=== PATIENT | female | born 1950 | race Caucasian/White ===

== ENCOUNTER → 2018-11-10 09:49 | Day surgery (SDC) | payer MEDICARE, OTHER ==
[~2018-11-10 09:49] MED LIST: Acetaminophen TAB* 325 MG PO PRN; Betamethasone INJ* 6 MG/ML 5 ML VIAL (30 MG) ONE; Buffered Lidocaine 1% SYRIN* 1 ML/SYRINGE INTRADERM ONE; Bupivacaine 0.25% SDV PF* 10 ML VIAL INJ ONE; Dexamethasone IV* 4 MG/ML 1 ML (4 MG) ONE; Dexamethasone IV* 4 MG/ML 5 ML VIAL (20 MG) ONE; Diltiazem CD CAP* 120 MG PO SCH; Famotidine IV* 10 MG/ML 2 ML (20 mg) IV ONE; Famotidine IV* 10 MG/ML 2 ML (20 mg) ONE; Ibuprofen TAB* 600 MG PO PRN; Lactated Ringers 1000 ML Bag* 1,000 ML IV SCH; Lidocaine 1% INJ* 10 MG/ML 30 ML SDV ONE; Midazolam* 1 MG/ML 2 ML VIAL (2 MG) ONE; Naloxone* 0.4 MG/ML 1 ML VIAL IV PRN; Ondansetron INJ* 2 MG/ML VIAL IV PRN; Propofol* 10 MG/ML 20 ML BTL ONE; ceFAZolin 2 GM PREMIX in ORs 2 GM/50 ML BAG IVPB ONE; fentaNYL* 50 MCG/ML 2 ML VIAL (100 MCG VIAL) IV PRN; fentaNYL* 50 MCG/ML 2 ML VIAL (100 MCG VIAL) ONE; oxyCODONE/Acetamin 5/325 MG* TAB PO PRN
[2018-11-10] MEDS: Dexamethasone IV* 4 MG/ML 1 ML (4 MG) IV SLOW PU ONE ×2 (10:34→10:43)
[2018-11-10 15:36] VITALS: BP 131/64
--- NOTE | 2018-11-10 22:35 | OP ---
DATE OF OPERATION: 11/10/18 - FORMERLY [facility] DATE OF : 54 SURGEON: Maxime Mills MD [employer] SH[employer] LEAD: MARIA D Art ANESTHESIOLOGIST: Dr. Calixto. ANESTHESIA: Local MAC. PRE-OP DIAGNOSES: 1. Right index, middle, and ring trigger fingers. 2. Left index trigger finger. POST-OP DIAGNOSES: 1. Right index, middle, and ring trigger fingers. 2. Left index trigger finger. OPERATIVE PROCEDURE: 1. Right index finger release of A1 julián. 2. Right middle finger release of A1 julián. 3. Right ring finger release of A1 julián. 4. Left index finger tendon sheath injection. INDICATIONS: Geno has the aforementioned trigger fingers. It is making it very difficult for her to fully close the hand. We had talked about risks and benefits, she wanted to proceed with surgery. ESTIMATED BLOOD LOSS: 2 mL. COMPLICATIONS: None. FINDINGS: See above and below. DESCRIPTION OF PROCEDURE: Geno was seen in the preoperative holding area. The correct site, side, and procedure were identified. We came back to the operating room, where the arm was prepped and draped in the usual fashion and a time-out was performed. The arm was exsanguinated with the Esmarch and the tourniquet was inflated to 250 mmHg. I had infiltrated the operative area with 0.25% plain Marcaine. A time-out was performed. Prior to draping but after the time-out, I did cleanse the A1 julián area of the left index finger with alcohol. I then injected the A1 julián area of the left index finger with 1 mL of 1% lidocaine and 6 mg of betamethasone. I then made a transverse incision in the distal palmar crease over the right middle and ring fingers. I made a separate longitudinal incision over the index finger. Full-thickness flaps were raised off the tendon sheath. I placed Ragnell retractors and and first released the A1 julián of the right index finger. The release was completed distally and proximally with the tenotomy scissors. In like fashion, I retracted the digital nerves out of the way on the middle finger and released the A1 julián and then on the ring finger and released the A1 julián. Once all of the releases were done, Geno was awake enough to open and close the hand. Initially, there was a little bit of catching in the index finger and so I released a little bit more of the julián, probably the first 10 % to 20% of the A2 julián. This resolved further triggering. She had opened and closed the hand multiple times. She cannot induce any triggering, so we irrigated out the wound. Skin was closed with 4-0 nylon suture. Wounds were dressed with soft dressings. She was then taken to the recovery room in stable condition. [id number]/[facility] #: [id number] JACK
== END | disposition home or self-care (01) ==
LOC: OR 09:49
PROVIDERS: ATTEND Orthopaedic Surgery Hand Surgery
DX: M65.321 Trigger finger, right index finger (principal); M65.331 Trigger finger, right middle finger; M65.341 Trigger finger, right ring finger; M65.322 Trigger finger, left index finger; E11.9 Type 2 diabetes mellitus without complications; Z87.891 Personal history of nicotine dependence; I10 Essential (primary) hypertension; E78.5 Hyperlipidemia, unspecified; J44.9 Chronic obstructive pulmonary disease, unspecified; G47.33 Obstructive sleep apnea (adult) (pediatric); K21.9 Gastro-esophageal reflux disease without esophagitis
CPT/HCPCS: 93005; A9270-GY; J0690; J0702; J1100; J2250; J2704; J3010; J3490

== ENCOUNTER → 2019-06-08 13:07 | Day surgery (SDC) | payer MEDICARE, OTHER ==
[~2019-06-08 13:07] MED LIST changes: -Acetaminophen TAB* 325 MG PO PRN; -Betamethasone INJ* 6 MG/ML 5 ML VIAL (30 MG) ONE; -Dexamethasone IV* 4 MG/ML 1 ML (4 MG) ONE; -Dexamethasone IV* 4 MG/ML 5 ML VIAL (20 MG) ONE; -Diltiazem CD CAP* 120 MG PO SCH; -Famotidine IV* 10 MG/ML 2 ML (20 mg) IV ONE; -Famotidine IV* 10 MG/ML 2 ML (20 mg) ONE; -Ibuprofen TAB* 600 MG PO PRN; +Levalbuterol 0.63MG/3ML NEB* UNIT OF USE INH ONE; -Lidocaine 1% INJ* 10 MG/ML 30 ML SDV ONE; +Lidocaine 2% PF * 5 ML VIAL ONE; -Midazolam* 1 MG/ML 2 ML VIAL (2 MG) ONE; -Ondansetron INJ* 2 MG/ML VIAL IV PRN; -ceFAZolin 2 GM PREMIX in ORs 2 GM/50 ML BAG IVPB ONE; +ceFAZolin 2 GM in NS PREMIX(*) 2 GM/100 ML BAG IVPB ONE; -fentaNYL* 50 MCG/ML 2 ML VIAL (100 MCG VIAL) IV PRN; -fentaNYL* 50 MCG/ML 2 ML VIAL (100 MCG VIAL) ONE; -oxyCODONE/Acetamin 5/325 MG* TAB PO PRN
[2019-06-08 19:40] VITALS: BP 149/62
--- NOTE | 2019-06-08 23:37 | OP ---
DATE OF OPERATION: 06/08/19 - [facility] DATE OF : 54 SURGEON: Maxmie Mills MD [employer] SU[employer] TEACHER: MARIA D Art ANESTHESIOLOGIST: Dr. Smith. ANESTHESIA: Local MAC. PRE-OP DIAGNOSIS: Left index, middle, ring, and small trigger fingers POST-OP DIAGNOSIS: Left index, middle, ring, and small trigger fingers OPERATIVE PROCEDURE: 1. Left index finger release of A1 julián. 2. Left middle finger release of A1 julián. 3. Left ring finger release of A1 julián. 4. Left small finger release of A1 julián. 5. Left index finger single slip of flexor digitorum superficialis tendon slip excision. INDICATIONS: Ms. Russell has various severe trigger fingers. She has done well with three other trigger fingers released on the right. The left hand is very severe. The index is by far the most severe, she cannot even hardly bend it. We talked about risks and benefits. She wanted to proceed. ESTIMATED BLOOD LOSS: 2 mL. COMPLICATIONS: None. FINDINGS: See above and below. DESCRIPTION OF PROCEDURE: Ms. Russell was seen in the preoperative holding area. The correct site, side and procedure were identified. We came back to the operating room. The arm was prepped and draped in the usual fashion and a time-out was performed. I anesthetized the operative area with 0.25% plain Marcaine. I made a 1 cm transverse incision in the distal palmar crease overlying the A1 julián of the left index finger. I then utilized the distal palmar crease to make an incision transversely over the A1 pulleys of the middle, ring, and small fingers. Dissection was carried down. The bands of palmar fascia were released. Full-thickness flaps were bluntly raised off the tendon sheath. I began on the index finger. I placed Ragnell retractors to protect the digital nerves. I released the A1 julián. I released the leading edge of the A2 julián. I released the fascia proximal to the A1 julián. I did a tenosynovectomy. I released the adhesions between the 2 tendons. At this point , everything was completely released, but she was still triggering. I then went over to the middle finger. In similar fashion, I placed Ragnell retractors. I performed the A1 julián release. I released the leading edge of the A2 julián. I released the fascia proximally. This took care of all triggering in the middle finger. I then, in similar fashion, did a trigger finger release for the ring finger followed by the small finger. After the releasing the A1 julián in its entirety and the surrounding soft tissues, there was no triggering. The middle , ring, and small fingers were moving wonderfully. Lastly, I returned to the index finger. There was nothing that I could release proximally. I therefore came in distally and I made a little ulnarly based V- shaped flap centered over the PIP joint flexion crease. This was sewn back with 4-0 nylon. I made a small incision through A3 julián on the ulnar aspect. I released the ulnar slip of the FDS tendon. I used the tenotomy scissors to release Camper chiasm. I then delivered that tendon slip up into the proximal wound, where it was brought proximally and then doubled off with a Richwood blade, it came out very cleanly. As soon as I had that out, there was no more triggering. The finger was moving great. I irrigated out all the wounds. The skin was closed with 4-0 nylon sutures. Soft dressings were applied, and she was taken to the recovery room in stable condition. [id number]/[facility] #: [id number] JACK
== END | disposition home or self-care (01) ==
LOC: OR 13:07
PROVIDERS: ATTEND Orthopaedic Surgery Hand Surgery
DX: M65.322 Trigger finger, left index finger (principal); M65.332 Trigger finger, left middle finger; M65.342 Trigger finger, left ring finger; M65.352 Trigger finger, left little finger; I10 Essential (primary) hypertension; I47.1 Supraventricular tachycardia; E78.5 Hyperlipidemia, unspecified; Z68.39 Body mass index [BMI] 39.0-39.9, adult; K21.9 Gastro-esophageal reflux disease without esophagitis; K58.9 Irritable bowel syndrome, unspecified; I89.0 Lymphedema, not elsewhere classified
CPT/HCPCS: J0690; J2704; J3490

== ENCOUNTER 2020-04-21 12:00 | Inpatient (IN) ==
[2020-05-20] MEDS ORDERED: Sodium Citrate/Citric Acid LIQ 15 ML UDC PO ONE (06:00)
[2020-05-20] MEDS ORDERED: Buffered Lidocaine 1% SYRIN 1 ml INTRADERM ONE ×2 (06:00→09:46)
[2020-05-20] MEDS ORDERED: Lactated Ringers 1000 ml BAG 1,000 ML IV SCH (06:00)
[2020-05-20] MEDS ORDERED: Famotidine IV 10 MG/ML 2 ml VIAL (20 mg) IV ONE (06:00)
[2020-05-20] MEDS ORDERED: Famotidine IV 10 MG/ML 2 ml VIAL (20 mg) ONE (09:46)
[2020-05-20] MEDS ORDERED: Sodium Citrate/Citric Acid LIQ 15 ML UDC ONE (09:46)
[2020-05-20] MEDS ORDERED: ceFAZolin 2 GM PREMIX 2 GM/50 ML BAG ONE (09:46)
[2020-05-20] MEDS ORDERED: Propofol 10 MG/ML 20 ML BTL ONE ×3 (10:07→15:21)
[2020-05-20] MEDS ORDERED: Dexamethasone IV 4 MG/ML VIAL 1 ml VIAL ONE (10:07)
[2020-05-20] MEDS ORDERED: fentaNYL 250 mcg/5 ml 50 MCG/ML 5 ml VIAL (250 MCG) ONE (10:10)
[2020-05-20] MEDS ORDERED: Midazolam 2 mg/2 ml VIAL 1 mg/ml 2 ml VIAL (2 mg) ONE (10:10)
[2020-05-20] MEDS ORDERED: Lidocaine 2% PF 5 ML VIAL ONE (10:10)
[2020-05-20] MEDS ORDERED: Phenylephrine IV 10 MG/ML 1 ml VIAL ONE (10:10)
[2020-05-20] MEDS ORDERED: ROPIVACAINE 5 MG/ML 30 ML BTL (0.5%) ONE (12:05)
[2020-05-20] MEDS ORDERED: Rocuronium 50 mg VIAL 10 mg/ml 5 ml VIAL (50 mg) ONE ×2 (13:17→13:44)
[2020-05-20] MEDS ORDERED: Sugammadex 500 MG/5 ML 5 ml VIAL IV PUSH ONE (14:03)
[2020-05-20] MEDS ORDERED: Ondansetron 4 mg VIAL 2 MG/ML 2 ml VIAL ONE (14:03)
[2020-05-20] MEDS ORDERED: Ondansetron 4 mg VIAL 2 MG/ML 2 ml VIAL IV PRN ×2 (14:07→15:52)
[2020-05-20] MEDS ORDERED: Naloxone 0.4 mg VIAL 0.4 mg/ml 1 ml VIAL IV PRN (14:07)
[2020-05-20] MEDS ORDERED: Labetalol IV 5 MG/ML 20 ml VIAL ONE (15:14)
[2020-05-20] MEDS ORDERED: diPHENhydraMINE IV 50 MG/ML 1 ml VIAL (BENADRYL) IV PRN (15:52)
[2020-05-20] MEDS ORDERED: Lactulose 30 ml UDC PO PRN (15:52)
[2020-05-20] MEDS ORDERED: Ondansetron ODT 4 mg TAB 4 MG TAB PO PRN (15:52)
[2020-05-20] MEDS ORDERED: diPHENhydraMINE 25 mg TAB PO PRN (15:52)
[2020-05-20] MEDS ORDERED: Magnesium Hydroxide LIQ 30 ML UDC PO PRN (15:52)
[2020-05-20] MEDS ORDERED: Morphine 2 MG/ML SYRINGE IV PRN (15:58)
[2020-05-20] MEDS ORDERED: Polyethylene Glycol 3350 17 GM PACKET PO PRN (16:01)
[2020-05-20] MEDS ORDERED: Oxycodone IR 10 mg TAB (NF) PO PRN (16:03)
[2020-05-20] MEDS ORDERED: Albuterol 2.5mg/3 ml (0.083%) NEB.SOLN INH PRN (16:04)
[2020-05-20] MEDS ORDERED: Potassium Chlor 20 meq TAB.ER PO PRN (16:04)
[2020-05-20] MEDS ORDERED: SPIRIVA Respimat (tiotropium) 2.5 mcg/inh Inhaler INH PRN (16:04)
[2020-05-20] MEDS ORDERED: Mometasone/Formoter 200/5 MDI INH PRN (16:04)
[2020-05-20] MEDS ORDERED: HYDROmorphone 1 MG/1 ML SYRINGE ONE (16:17)
[2020-05-20] MEDS: HYDROmorphone 1 MG/1 ML SYRINGE IV PRN ×5 (16:18→17:17)
[2020-05-20] MEDS ORDERED: fentaNYL 100 mcg/2 ml 50 MCG/ML VIAL ONE (16:29)
[2020-05-20] MEDS: fentaNYL 100 mcg/2 ml 50 MCG/ML VIAL IV PRN ×4 (16:30→17:04)
[2020-05-20] MEDS: Lactated Ringers 1000 ml BAG 1,000 ML IV SCH (18:05)
[2020-05-20] MEDS ORDERED: Dextrose 50% Syringe 50 ml 25 GM/50 ML SYRINGE IV PUSH PRN ×2 (18:09→22:38)
[2020-05-20] MEDS: ceFAZolin 1 GM ADVAN 1 GM in NS 0.9% 50 ML 50 ML IVPB SCH (22:06)
[2020-05-20] MEDS: Magnesium Hydroxide LIQ 30 ML UDC PO SCH ×2 (22:06→22:25)
[2020-05-20] MEDS: CMC:Mesalamine 500 mg CAP (NF) PO SCH (23:05)
[2020-05-21] MEDS ORDERED: Lactated Ringers 500 ml BAG 500 ML IV ONE (02:10)
[2020-05-21] MEDS ORDERED: Lactated Ringers 1000 ml BAG 500 ML IV ONE (02:30)
[2020-05-21] MEDS: Lactated Ringers 1000 ml BAG 1,000 ML IV SCH (03:45)
[2020-05-21] MEDS: ceFAZolin 1 GM ADVAN 1 GM in NS 0.9% 50 ML 50 ML IVPB SCH ×2 (05:09→12:58)
[2020-05-21 05:42] LABS: Hematocrit 30 % (35-47); Hemoglobin 9.5 g/dL (12.0-16.0); Mean Platelet Volume 10.5 fL (7.4-10.4); Platelet Count 176 10^3/uL (150-450)
[2020-05-21 05:59] LABS: BUN/Creatinine Ratio 18.3 (8-20); Calcium 8.6 mg/dL (8.6-10.3); EGFR African American 60.6 (>60); EGFR Non-African American 50.1 (>60)
[2020-05-21 06:21] LABS: Potassium 5.5 mmol/L (3.5-5.0)
[2020-05-21] MEDS ORDERED: Patiromer POWDER 8.4 GM PAK PO ONE (09:00)
[2020-05-21] MEDS ORDERED: Vitamin THERAPEUTIC TAB PO SCH (09:00)
[2020-05-21] MEDS ORDERED: CMC:Roflumilast 500 mcg TAB (NF) PO SCH (09:00)
[2020-05-21] MEDS: Magnesium Hydroxide LIQ 30 ML UDC PO SCH ×2 (09:21→09:35)
[2020-05-21] MEDS: CMC:Mesalamine 500 mg CAP (NF) PO SCH ×2 (09:46→14:03)
[2020-05-21 11:45] VITALS: BP 134/50
== END 2020-05-21 15:05 | disposition home health service (06) | DRG 470 ==
LOC: AA 05-20 09:12 → SSU 05-20 15:52
PROVIDERS: ADMIT Orthopaedic Surgery Adult Reconstructive Orthopaedic Surgery; ATTEND Orthopaedic Surgery Adult Reconstructive Orthopaedic Surgery